=== PATIENT | male | born 1975 | race American Indian/Alaskan Native ===

== ENCOUNTER 2018-05-30 22:59 | Emergency (ER) | payer BC, OTHER ==
[2018-05-30 23:18] VITALS: BP 138/90
--- NOTE | 2018-05-31 01:16 | Emergency Department Report ---
Eye Injury/Foreign Body - HPI Duration: 1 week Eye Location: Bilateral Severity: Moderate Tetanus Status: Up to Date Eye Symptoms: Eye Pain: Yes, Blurred Vision: No, Eye Redness: Yes, Grinding/Hammering Metal: Yes, Used Eye Protection: No, Contact Lens Use: No, Recalls Injury: Yes, Photophobia: Yes Other History: This is a 42-year-old -[place] male presents with bilateral eye pain for one week. 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 Patient states this particular day he wasn't wearing protective eyeglasses. Went home and rest is with water and applied Visine drops which made symptoms worse. Patient states he woke up the next morning and saw crusting around both eyes. He flushed eyes with water and applied Visine drops with minimal improvement of symptoms. He now reports a grinding sensation and sensitivity to light. ED Review of Systems ROS: Stated complaint: EYE PAIN Other details as noted in HPI Constitutional: denies: chills, fever Eyes: eye pain. denies: eye discharge, vision change ENT: denies: ear pain, throat pain Respiratory: denies: cough, shortness of breath, wheezing Cardiovascular: denies: chest pain, palpitations Neurological: denies: headache, weakness, paresthesias Psychiatric: denies: anxiety, depression ED Past Medical Hx - Past Medical History Hx Diabetes: Yes - Surgical History Past Surgical History?: No - Social History Smoking Status: Never Smoker Substance Use Type: None, Alcohol - Medications Home Medications: Home Medications Medication Instructions Recorded Confirmed Last Taken Type Erythromycin [Erythromycin Ophth 10 applic OP Q4H #1 tube 05/31/18 Unknown Rx Oint] Eye Injury Exam - Exam General: Vital signs noted. No distress. Alert and acting appropriately. - Visual Acuity Bilateral Vision Acuity Degree: 20/20 Eye Exam: Both Injection, Both EOMI, Both Mucous Discharge, Both Fluorescein Uptake (negative clue cells or foreign object), Both Fluorescein Uptake (slit lamp), Neither Chemosis, Neither Abnormal Pupil, Neither Eye Foreign Body, Neither Lid Foreign Body, Neither Purulent Discharge, Neither Cell/Flare (slit lamp), Neither Corneal Edema, Neither Photophobia ED Course Vital Signs 05/30/18 23:13 Temperature 99.2 F Respiratory 16 Rate Blood Pressure 138/90 O2 Sat by Pulse 96 Oximetry ED Medical Decision Making - Medical Decision Making This is a 42-year-old male that presents with bilateral pink eyes with mucous discharge for 1 week. Patient is stable and was examined by me. Vitals normal. Physical assessment susceptible of conjunctivitis bilateral. Start erythromycin gtts. Discussed plan with patient and he agreed with plan. Discharged home in stable condition. Referral to oiler and greaser. Instructed to follow-up with oiler and greaser if symptoms worsen. Follow up with PCP in 24-72 hours. Critical care attestation.: If time is entered above; I have spent that time in minutes in the direct care of this critically ill patient, excluding procedure time. ED Disposition Clinical Impression: Conjunctivitis Qualifiers: Conjunctivitis type: acute Acute conjunctivitis type: bacterial Laterality: bilateral Qualified Code(s): H10.33 - Unspecified acute conjunctivitis, bilateral Disposition: TO HOME OR SELFCARE Is pt being admited?: No Does the pt Need Aspirin: No Condition: Stable Instructions: Conjunctivitis (ED) Additional Instructions: Pinkeye is very contagious so please wash hands frequently. Don't share any towels or bedding to prevent spread of infection. Follow up with oiler and greaser in 24-72 hours if symptoms are worsening. Use cool compress to each eye to decrease swelling. Avoid rubbing or touching eyes, because rubbing eyes can cause worsening symptoms. Take medication as prescribed. Return to ER if swelling don't improve or difficulty breathing after 2 days of medication. Prescriptions: Erythromycin [Erythromycin Ophth Oint] 10 applic OP Q4H #1 tube Referrals: DEEPA MORTON MD [Staff Physician] - 3-5 Days [facility] [Provider Group] - 3-5 Days Forms: Work/School Release Form(ED) Time of Disposition: 02:42
[2018-05-31] MEDS ORDERED: TETRACAINE 0.5% OU ONE (01:17)
[2018-05-31] MEDS ORDERED: FUL-GLO OP ONE (01:17)
== END 2018-05-31 02:56 | disposition home or self-care (01) ==
LOC: ED 22:59
DX: H10.9 Unspecified conjunctivitis (principal); E11.9 Type 2 diabetes mellitus without complications

== ENCOUNTER 2018-08-11 15:39 | Emergency (ER) | payer SELFPAY ==
--- NOTE | 2018-08-11 16:20 | Emergency Department Report ---
Chief Complaint: Skin Rash Stated Complaint: RT SIDE RASH/ARM PAIN Time Seen by Provider: 08/11/18 16:18 - HPI History of Present Illness: POISON CLARENCE THINKS IN EYE PMH DM DIET CONTROLLED OFF MEDS WILL NEED REFERRALS VSS MSE COMPLETED - Exam Vital Signs: Vital Signs 08/11/18 16:17 Temperature 98.3 F Pulse Rate 88 Respiratory 18 Rate Blood Pressure 123/74 O2 Sat by Pulse 97 Oximetry MSE screening note: Focused history and physical exam performed. Due to findings the following was ordered: ED Disposition for MSE Condition: Stable
[2018-08-11] MEDS ORDERED: TETRACAINE 0.5% OU ONE (17:24)
[2018-08-11] MEDS ORDERED: FUL-GLO OP ONE (17:24)
--- NOTE | 2018-08-11 19:52 | Emergency Department Report ---
ED Rash HPI - HPI Chief Complaint: Skin Rash Stated Complaint: RT SIDE RASH/ARM PAIN Time Seen by Provider: 08/11/18 16:18 Duration: 2 Days Location: Upper Extremities Suspected Cause: Plant Rash Symptoms: Yes Itching, No Facial Swelling, No Tongue/Oral Swelling, No Breathing Difficulties, No Choking Sensation, No Wheezing/Dyspnea, No Peeling, No Blistering, No Fever, No Lightheaded, No Malaise, No Myalgias Severity: mild Other History: 42-year-old male presents to the emergency room complaining of a rash to both arms and hands 2 days. Patient states it began after performing yard work. Patient states that the rash itches and is with pus when scratched. Patient feels that it is poison Ivory. Patient also complains of left eye irritation. Patient is not sure if he may have gotten something in his eye. Patient has no known drug allergies. ED Review of Systems ROS: Stated complaint: RT SIDE RASH/ARM PAIN Other details as noted in HPI Comment: All other systems reviewed and negative Skin: rash ED Past Medical Hx - Past Medical History Previous Medical History?: Yes Hx Diabetes: Yes (diet-controlled) - Surgical History Past Surgical History?: No - Social History Smoking Status: Current Every Day Smoker Substance Use Type: Alcohol - Medications Home Medications: Home Medications Medication Instructions Recorded Confirmed Last Taken Type Erythromycin [Erythromycin Ophth 10 applic OP Q4H #1 tube 05/31/18 Unknown Rx Oint] Betamethasone Dipropionate 1 applicatio TP BID #15 oint...g. 08/11/18 Unknown Rx [Betamethasone Dipropionate 0.05% Oint] Ketotifen Fumarate [Zaditor] 5 ml OP QDAY #1 bottle 08/11/18 Unknown Rx hydrOXYzine HCL [Atarax] 25 mg PO Q6HR PRN #20 tablet 08/11/18 Unknown Rx Rash Exam - Exam General: Vital signs noted. No distress. Alert and acting appropriately. HEENT: No Periorbital Edema, No Conjuctival Injection, No Chemosis, No Perioral Edema, No Tongue Edema, No Uvular Edema, No Compromised Airway, No Drooling Lungs: Yes Good Air Exchange (Normal Breath Sounds), No Wheezes, No Ronchi, No Stridor, No Cough, No Labored Respirations, No Retractions, No Use of Accessory Muscles, No Other Abnormal Lung Sounds Heart: Yes Regular, No Murmur Skin: Yes Maculopapular Rash, Yes Erythema, No Urticarial Rash, No Morbilliform rash, No Bulla(e), No Excoriations, No Tenderness, No Edema, No Encrustations, No Other Other: Positive: Abdomen Normal, Neurologic Normal, Musculoskeletal Normal ED Course Vital Signs 08/11/18 16:17 Temperature 98.3 F Pulse Rate 88 Respiratory 18 Rate Blood Pressure 123/74 O2 Sat by Pulse 97 Oximetry ED Medical Decision Making - Medical Decision Making Patient has been evaluated by this provider in fast track. Patient be placed on high potency topical steroids and Atarax for itching I will place patient on erythromycin for his left eye as well as Zaditor mast cell stabilizer. Discussed patient with this does not improve in the next 3 days to follow up with an quick technician. Patient verbalized understanding Critical care attestation.: If time is entered above; I have spent that time in minutes in the direct care of this critically ill patient, excluding procedure time. ED Disposition Clinical Impression: Poison salima dermatitis Disposition: DC-01 TO HOME OR SELFCARE Is pt being admited?: No Does the pt Need Aspirin: No Condition: Stable Instructions: Poison Salima (ED), Contact Dermatitis (ED) Additional Instructions: Please Take medication as prescribed. If symptoms persist or gets worse please follow-up with an quick technician as well as a studio hand. I have listed their information below for your convenience. Prescriptions: hydrOXYzine HCL [Atarax] 25 mg PO Q6HR PRN #20 tablet PRN Reason: Itching Betamethasone Dipropionate [Betamethasone Dipropionate 0.05% Oint] 1 applicatio TP BID #15 oint...g. Ketotifen Fumarate [Zaditor] 5 ml OP QDAY #1 bottle Referrals: PRIMARY CARE, [Primary Care Provider] - 3-5 Days Forms: Work/School Release Form(ED)
[2018-08-11 19:58] VITALS: BP 144/101
== END 2018-08-11 20:17 | disposition home or self-care (01) ==
LOC: ED 15:39
DX: L23.7 Allergic contact dermatitis due to plants, except food (principal); E11.9 Type 2 diabetes mellitus without complications; F17.200 Nicotine dependence, unspecified, uncomplicated